=== PATIENT | female | born 1930 | race Caucasian/White ===

== ENCOUNTER 2019-12-12 05:01 | Inpatient (IN) | payer MEDICARE, OTHER ==
[~2019-12-12] VITALS: Ht 165.1 cm; Wt 43.1 kg
[2019-12-12] VITALS (19 sets, daily range): BP systolic 74–119; BP diastolic 36–69
[2019-12-12] MEDS ORDERED: ACET325C7 GT (05:14)
[2019-12-12] MEDS ORDERED: ACET325T53 GT (05:15)
[2019-12-12] MEDS ORDERED: ALBU2.5V13 NEB (05:15)
[2019-12-12] MEDS ORDERED: VANCOMYCIN 1 GM VIAL ONE (05:20)
[2019-12-12] MEDS ORDERED: ACETAMINOPHEN 650 MG/SUPP.RECT RC ONE ×2 (05:20→06:00)
[2019-12-12] MEDS ORDERED: PIPERACILLIN /TAZOBACTAM 3.375 G VIAL IV ONE (05:20)
[2019-12-12] MEDS ORDERED: BISA-79 GT (05:25)
[2019-12-12] MEDS ORDERED: CHLO473M3 PO (05:25)
[2019-12-12] MEDS ORDERED: DOCU100C36 PO (05:25)
[2019-12-12] MEDS ORDERED: NA P133E RC (05:26)
[2019-12-12] MEDS ORDERED: APIX5TAB GT (05:26)
[2019-12-12] MEDS ORDERED: GUAI-671 GT (05:27)
[2019-12-12] MEDS ORDERED: MAGN400O21 GT (05:28)
[2019-12-12] MEDS ORDERED: MULT1TAB73 GT (05:28)
[2019-12-12] MEDS ORDERED: METO50TA16 GT (05:28)
[2019-12-12] MEDS ORDERED: FAMO-131 GT (05:29)
[2019-12-12] MEDS ORDERED: PIPERACILLIN /TAZOBACTAM 3.375 G in IV D5W 50 ML IV ONE (05:30)
[2019-12-12] MEDS ORDERED: IV NS 0.9% 1,000 ML BAG IV ONE (05:30)
[2019-12-12] MEDS ORDERED: PANT40SU GT (05:30)
[2019-12-12] MEDS ORDERED: VANCOMYCIN 1 GM in IV D5W 250 ML IV ONE (05:30)
[2019-12-12] MEDS ORDERED: ASPIRIN 300 MG/SUPP.RECT RC ONE (05:30)
[2019-12-12 05:40] LABS: BASOPHILS # (AUTO) 0.1 /CMM (0.0-0.2); BASOPHILS % (AUTO) 0.3 % (0.0-2.0); HEMATOCRIT 32 % (33-45); HEMOGLOBIN 10.1 g/dL (11.5-14.8); LYMPHOCYTES # (AUTO) 0.2 /CMM (0.8-4.8); MEAN CORPUSCULAR HGB CONC 32 g/dl (31.0-36.0); MEAN CORPUSCULAR VOLUME 95 fL (82-100); MONOCYTES # (AUTO) 0.3 /CMM (0.1-1.30); MONOCYTES % (AUTO) 1.2 % (2.0-12.0); NEUTROPHILS % (AUTO) 97.5 % (43.0-81.0); PLATELET COUNT (AUTO) 480 /CMM (150-450); RED BLOOD CELL COUNT(AUTO) 3.33 MIL/uL (4.0-5.2); WHITE BLOOD COUNT (AUTO) 25.7 K/uL (4.3-11.0)
--- NOTE | 2019-12-12 05:44 | NUR ---
FARHAD FROM [facility]. TO ER BED 9. PT IS LETHARGIC, RESPONDS TO VERBAL, TACTILE AND PAIN STIMULI. ABLE TO FOLLOW COMMAND. PT IS ON T BAR NOTED BREATHING SHALLOW AND RAPID, NOTED CRACKLE AND RALES. PER EMS REPORT, FACILTY REPORTED THAT SHE IS NOT HER SELF. PT HAS BEEN SOB AND DESAT TO [place] READING. EMS REPORTED THAT PT IS HYPOTENSIVE W/ SBP IN THE 70'S. GIVEN BOLUS OF 100ML NS. PT WAS ALSO NOTED WITH PRODUCTIVE COUGHING, SUCTION PROVIDED - SPUTUM IS MODERATE THICK BLOOD TINGED YELLOW SPUTUM. PT IS ALSO NOTED WARM TO TOUCH WITH RECTAL TEMP OF 101.0. MD WAS AT BEDSIDE FOR EVAL. ORDERS RECEIVED, NOTED AND CARRIED OUT. IV LINE OBTAINED ON THE L WRIST 20G, BLOOD DRAWN AND GIVEN TO CHEMIST PHYSICAL AT BEDSIDE
[2019-12-12 06:09] LABS: ALANINE AMINOTRANSFERASE 17 U/L (12-78); ALKALINE PHOSPHATASE 97 U/L (46-116); ASPARTATE AMINOTRANSFERASE 19 U/L (15-37); BILIRUBIN,TOTAL 0.4 mg/dL (0.2-1.0); CALCIUM, SERUM 8.1 mg/dL (8.5-10.1); CARBON DIOXIDE 31 mmol/L (21-32); CHLORIDE 95 mmol/L (98-107); GLUCOSE 95 mg/dL (74-106); POTASSIUM 3.4 mmol/L (3.5-5.1); SODIUM SERUM 133 mmol/L (136-145); TOTAL PROTEIN, SERUM 6.3 g/dL (6.4-8.2); UREA NITROGEN, BLOOD 28 mg/dL (7-18)
[2019-12-12 06:19] LABS: CREATININE 0.6 mg/dL (0.6-1.3)
--- NOTE | 2019-12-12 06:39 | NUR ---
suction provided. thick blood tigned yellow sputum
--- NOTE | 2019-12-12 07:05 | NUR ---
urine collected via in & out cath. strict sterile technique observed during procedure
--- NOTE | 2019-12-12 07:09 | NUR ---
RECTAL TEMP NOTED AT 98.7. MD CASTRO
[2019-12-12 07:35] LABS: APPEARANCE,URINE Clear (CLEAR); BILIRUBIN,URINE Negative (NEGATIVE); BLOOD, URINE Trace-intact Ery/uL (NEGATIVE); COLOR,URINE Yellow (YELLOW); KETONES,URINE Negative (NEGATIVE); LEUKOCYTE ESTERASE ,URINE Small (NEGATIVE); NITRITE, URINE Negative (NEGATIVE); PROTEIN,URINE Negative (NEGATIVE); UGLUCOSE Negative (NEGATIVE); UROBILINOGEN,URINE 0.2 EU/dL (0.2)
--- NOTE | 2019-12-12 07:42 | NUR ---
TRACHE AND MOUTH SUCTION DONE.
--- NOTE | 2019-12-12 07:45 | NUR ---
PT ENDORSED TO YURIDIA FISH FOR HARDIK
[2019-12-12] MEDS ORDERED: ALBUTEROL FS 2.5 MG/0.5 ML VIAL.NEB NEB PRN (08:00)
[2019-12-12] MEDS ORDERED: Z GUARD REMEDY 2 OZ OINT TP PRN (08:00)
[2019-12-12] MEDS ORDERED: ONDANSETRON HCL/PF 4 MG/2 ML VIAL IVP PRN (08:00)
[2019-12-12] MEDS ORDERED: IPRATROPIUM NEB FS 0.5 MG/2.5 ML AMPUL.NEB NEB PRN (08:00)
[2019-12-12 08:05] LABS: BACTERIA,URINE Many /HPF (None Seen); RBC,URINE 0-2 /HPF (0-2); SQUAMOUS EPITHELIAL CELL,UR Few /HPF (None Seen)
--- NOTE | 2019-12-12 08:08 | NUR ---
CALLED FOR [facility] BED
--- NOTE | 2019-12-12 08:37 | NUR ---
GOT BED ICU 251
--- NOTE | 2019-12-12 08:52 | NUR ---
REPORT GIVEN TO ADDY SHI OF ICU
[2019-12-12] MEDS ORDERED: FEE PK DOSING 1 MIN EA MC ONE (09:09)
--- NOTE | 2019-12-12 09:45 | NUR ---
RN INITIAL NOTES RECEIVED PT AWAKE, A/OX1-2. TRACH IN PLACE. ON COOL AEROSOL AT 5LPM. NO RESPIRATORY DISTRESS NOTED. NO SOB NOTED. DENIES ANY PAIN. IV LINES IN PLACE. FLUSHED WITH NS. PT CONNECTED TO MONITOR. SKIN ASSESSMENT ONE. PICTURES TAKEN AND PLACED IN CHART. PT REFUSED WILKS CATH INSERTION. BLE ELEVATED. BELLA MARR DNP AWARE OF ADMISSION. AWAITING FOR ADMISSION ORDERS
[2019-12-12] MEDS ORDERED: Magnesium 1GM/D5W 100ML PREMIX 100 ML IV SCH (10:21)
[2019-12-12] MEDS: CHLORHEXIDINE GLUCONATE 15 ML UDC MM SCH ×2 (10:27→16:41)
[2019-12-12] MEDS: IV NS 0.9% 1,000 ML IV PRN (10:27)
[2019-12-12] MEDS: PANTOPRAZOLE 40 MG/PACK PACK GT SCH (10:27)
[2019-12-12] MEDS: DOCUSATE SODIUM 100 MG CAPSULE PO SCH (10:27)
--- NOTE | 2019-12-12 10:35 | NUR ---
RN NOTES SEEN AND EXAMINED BY BELLA AMRR DNP. AWARE OF PT'S LAB VALUES AND CXR RESULT. CULTURES PENDING. PT A/OX1-2, FOLLOWS COMMANDS. TRACH IN PLACE. ON COOL AEROSOL. NO RESPIRATORY DISTRESS NOTED. DENIES ANY PAIN. BP ON LOW SIDE. ORDERED LEVOPHED PRN. PT FOR PICC INSERTION. PT UNCONTROLLED A.FIB ON MONITOR, ASYMPTOMATIC. ORDERED MAGNESIUM LEVEL. WILL CLOSELY MONITOR.
[2019-12-12] MEDS: POTASSIUM CL. PREMIX PERIPHER. 50 ML IV SCH ×2 (10:47→11:48)
[2019-12-12 10:48] LABS: ABG BASE EXCESS 5.4 mmol/L; ABG OXYGEN SATURATION 92.6 % (92.0-98.5); ABG PCO2 47.8 mmHg (35.0-45.0); ABG PH 7.423 (7.350-7.450); ABG PO2 67.6 mmHg (75.0-100.0); AaDO2 126.4 mmHg; COHb 0.2 % (0.5-1.5); MetHb 0.6 % (0.0-1.5); O2Hb 91.9 % (94.0-97.0); SITE, ABG Right Radial
[2019-12-12] MEDS ORDERED: NOREPINEPHRINE 8 MG in IV D5W 500 ML IV PRN (11:00)
[2019-12-12] MEDS: HYDROCORTISONE SOD SUCCINATE 100 MG/2 ML VIAL IV SCH ×3 (11:54→16:41)
[2019-12-12] MEDS: PROSOURCE / PROSTAT (PYXIS) 30 ML UDC GT SCH (11:54)
[2019-12-12] MEDS: APIXABAN 5 MG TABLET GT SCH ×2 (11:55→16:45)
[2019-12-12] MEDS ORDERED: ALBUTEROL FS 2.5 MG/0.5 ML VIAL.NEB NEB SCH (12:00)
[2019-12-12] MEDS: PIPERACILLIN /TAZOBACTAM 3.375 G in IV D5W 50 ML IV SCH ×2 (13:07→17:10)
--- NOTE | 2019-12-12 18:34 | NUR ---
RN CLOSING NOTES NO SIGNIFICANT CHANGE NOTED. KEPT AIRWAY PATENT. NO RESPIRATORY DISTRESS NOTED. SUCTIONED. DENIES ANY PAIN. IVF INFUSING. KEPT NPO. KEPT CLEAN AND DRY. KEPT COMFORTABLE. ALL NEEDS ANTICIPATED AND MET. CALL LIGHT WITHIN REACH. WILL ENDORSE FOR CONTINUITY OF CARE
--- NOTE | 2019-12-12 19:20 | NUR ---
RN OPENING NOTES, RECEIVED REPORT AT BEDSIDE, PATIENT AWAKE A/O2, ABLE TO MAKE NEEDS KNOW, BREATHING EVEN AND UNLABORED, NO SOB/ACUTE DISTRESS NOTED AT THIS TIME, DENIES ANY PAIN OR DISCOMFORT, ON COOL AEROSOL, WITH TRACH IN PLACED, NO ACCUMULATION OF SECRETIONS NOTED, RESPIRATORY DISTRESS NOTED, NS 0.9% IVF INFUSING ORDERED, PATENT TOLERATED WELL, NPO AT THIS TIME, DRY AND CLEAN KEPT COMFORTABLE, HOB ELEVATED, ALL NEEDS PROVIDED, CALL LIGHT WITHIN REACH, BILATERAL S/S OF BED UP, WILL CONTINUE TO MONITOR CLOSELY.
--- NOTE | 2019-12-12 21:50 | NUR ---
RN NOTES, PATIENT COMPLAINING OF MILD BACK PAIN AND COUGH, REQUESTING TYLENOL AND GUAIFENESIN, CALLED CRISTY VECTOR CONTROL SPECIALIST AND RECEIVED ORDERS FOR THOSE MEDICATIONS, NOTED AND CARRIED OUT, WILL ADMINISTRATE ORDERED.
[2019-12-12] MEDS ORDERED: ACETAMINOPHEN 650 MG/20 ML UDC- SA PATIENTS-PAIN ONLY GT PRN (22:00)
[2019-12-12] MEDS ORDERED: ACETAMINOPHEN 650 MG/20.3 ML UDC ONE (22:13)
[2019-12-12] MEDS: GUAIFENESIN/D-METHORPHAN HB 5 ML UDC GT PRN (22:17)
[2019-12-12] MEDS: VANCOMYCIN 500 MG in IV D5W 100 ML IV SCH (23:16)
[2019-12-13] VITALS (19 sets, daily range): BP systolic 83–122; BP diastolic 51–72
[2019-12-13] MEDS: PIPERACILLIN /TAZOBACTAM 3.375 G in IV D5W 50 ML IV SCH ×5 (00:44→23:02)
[2019-12-13] MEDS: IV NS 0.9% 1,000 ML IV PRN ×2 (04:14→17:53)
[2019-12-13] MEDS: GUAIFENESIN/D-METHORPHAN HB 5 ML UDC GT PRN ×2 (04:25→12:07)
[2019-12-13 04:34] LABS: BASOPHILS % (AUTO) 0.1 % (0.0-2.0); HEMATOCRIT 27 % (33-45); HEMOGLOBIN 8.4 g/dL (11.5-14.8); LYMPHOCYTES # (AUTO) 0.4 /CMM (0.8-4.8); LYMPHOCYTES % (AUTO) 1.5 % (20.0-44.0); MEAN CORPUSCULAR HGB CONC 32 g/dl (31.0-36.0); MEAN CORPUSCULAR VOLUME 95 fL (82-100); MONOCYTES # (AUTO) 0.5 /CMM (0.1-1.30); MONOCYTES % (AUTO) 1.9 % (2.0-12.0); NEUTROPHILS # (AUTO) 22.9 /CMM (1.8-8.9); NEUTROPHILS % (AUTO) 96.5 % (43.0-81.0); PLATELET COUNT (AUTO) 423 /CMM (150-450); WHITE BLOOD COUNT (AUTO) 23.7 K/uL (4.3-11.0)
[2019-12-13 04:49] LABS: THYROID STIMULATING HORMONE 2.745 uIU/mL (0.358-3.74)
[2019-12-13 04:50] LABS: CALCIUM, SERUM 8.3 mg/dL (8.5-10.1); CREATININE 0.6 mg/dL (0.6-1.3); MAGNESIUM 1.8 mg/dL (1.8-2.4); POTASSIUM 3.7 mmol/L (3.5-5.1)
--- NOTE | 2019-12-13 06:58 | NUR ---
RN CLOSING NOTES, PATIENT ASLEEP BUT AROUSES EASILY TO VERBAL STIMULI, BREATHING EVEN AND UNLABORED, NO SOB/ACUTE DISTRESS NOTED AT THIS TIME, NO SIGNIFICANT CHANGE IN CONDITION THROUGHOUT THE NIGHT, NPO AT THIS TIME EXCEPT MEDS, DRY AND CLEAN KEPT COMFORTABLE, HOB ELEVATED, ALL NEEDS PROVIDED, CALL LIGHT WITHIN REACH, BILATERAL S/S OF BED UP, WILL ENDORSE CONTINUITY OF CARE TO ONCOMING NURSE.
--- NOTE | 2019-12-13 07:10 | NUR ---
RN OPENING NOTES, RECEIVED PATIENT IN BED AWAKE A/OX3. ABLE TO MAKE NEEDS KNOWN. BREATHING EVEN AND UNLABORED, PATIENT ON COOL AEROSOL. WITH TRACH IN PLACE WITH OPTIMAL SATURATION NOTED. SOB/ACUTE DISTRESS SEEN. NO PAIN OR DISCOMFORT NOTED AND REPORTED. IV SITES ON RAC G20 AND BETTE PICC LINE PATENT, CLEAN AND DRY. NS IVF INFUSING ORDERED, PATIENT TOLERATING IT WELL. NPO EXCEPT MEDICATIONS AT THIS TIME, PATIENT IS AWARE AND UNDERSTOOD. PT HX WITH UNCONTROLLED A. FIB. CALL LIGHT IN REACH. BED LOCKED, LOW AND AT SEMI-PIZARRO'S POSITION. SR UP X3. WILL CONTINUE TO MONITOR.
[2019-12-13] MEDS: HYDROCORTISONE SOD SUCCINATE 100 MG/2 ML VIAL IV SCH ×3 (08:49→17:47)
[2019-12-13] MEDS: PANTOPRAZOLE 40 MG/PACK PACK GT SCH (08:49)
[2019-12-13] MEDS: DOCUSATE SODIUM 100 MG CAPSULE PO SCH (08:50)
[2019-12-13] MEDS: CHLORHEXIDINE GLUCONATE 15 ML UDC MM SCH ×2 (08:50→17:46)
[2019-12-13] MEDS: PROSOURCE / PROSTAT (PYXIS) 30 ML UDC GT SCH (08:50)
[2019-12-13] MEDS: APIXABAN 5 MG TABLET GT SCH ×2 (08:53→17:51)
[2019-12-13] MEDS: ACETAMINOPHEN 650 MG/20.3 ML UDC GT PRN (12:07)
--- NOTE | 2019-12-13 15:30 | NUR ---
RN NOTE: PATIENT DOWNGRADED FROM ICU TO [facility]. NURSE ACCOMPANIED PATIENT IN TRANSFER AND IN STABLE CONDITION UPON ARRIVING IN THE UNIT.
[2019-12-13] MEDS: VANCOMYCIN 500 MG in IV D5W 100 ML IV SCH (18:52)
--- NOTE | 2019-12-13 19:20 | NUR ---
RN CLOSING NOTE: PATIENT IN BED AWAKE A/OX4. ABLE TO MAKE NEEDS KNOWN, MOUTHS WORDS AND WRITES DOWN THINGS. BREATHING EVEN AND UNLABORED, PATIENT ON COOL AEROSOL @8LPM WITH TRACH IN PLACE WITH OPTIMAL SATURATION NOTED. SOB/ACUTE DISTRESS SEEN. NO PAIN OR DISCOMFORT NOTED AND REPORTED. IV SITES ON L HANDN G20 AND BETTE PICC LINE PATENT, CLEAN AND DRY. NS IVF INFUSING ORDERED, PATIENT TOLERATING IT WELL. TUBE FEEDING OF JEVITY 1.2 @ 25MLS/HR TO START. PT HX WITH UNCONTROLLED A. FIB WITH HEART RATE OF 88BPM NOTED. CALL LIGHT IN REACH. BED LOCKED, LOW AND AT SEMI-PIZARRO'S POSITION. SR UP X3. ENDORSED TO ONCOMING NURSE FOR HARDIK. PATIENT REPORTED HX OF WATCHMAN IMPLANT ON 2016 AND WOULD LIKE TO SPEAK TO DR. COLIN TOMORROW DUE TO BEING PRESCRIBED AND GIVEN ELIQUIS IN HER HOSPITAL STAY. EXPLAINED TO PATIENT THAT MEDICATION WAS RECONCILED FROM WHEN SHE WAS IN THE [place]. ACKNOWLEDGED. LEONARDO RN AWARE OF PATIENT'S REQUEST.
[2019-12-13] MEDS: JEVITY 1.2 CAL 1,000 ML BOTTLE GT PRN (20:12)
[2019-12-14] VITALS: BP 113/63
[2019-12-14] MEDS: GUAIFENESIN/D-METHORPHAN HB 5 ML UDC GT PRN ×3 (03:41→23:04)
[2019-12-14] MEDS: ACETAMINOPHEN 650 MG/20.3 ML UDC GT PRN ×3 (03:41→22:57)
[2019-12-14 04:00] VITALS: BP 113/67
[2019-12-14] MEDS: PIPERACILLIN /TAZOBACTAM 3.375 G in IV D5W 50 ML IV SCH ×4 (05:59→23:41)
[2019-12-14 07:02] LABS: BASOPHILS % (AUTO) 0.2 % (0.0-2.0); EOSINOPHILS % (AUTO) 0.2 % (0.0-6.0); HEMATOCRIT 25 % (33-45); LYMPHOCYTES # (AUTO) 0.8 /CMM (0.8-4.8); LYMPHOCYTES % (AUTO) 5.2 % (20.0-44.0); MEAN CORPUSCULAR HGB CONC 32 g/dl (31.0-36.0); MEAN CORPUSCULAR VOLUME 95 fL (82-100); MONOCYTES # (AUTO) 0.8 /CMM (0.1-1.30); MONOCYTES % (AUTO) 5.1 % (2.0-12.0); NEUTROPHILS # (AUTO) 13.6 /CMM (1.8-8.9); NEUTROPHILS % (AUTO) 89.3 % (43.0-81.0); PLATELET COUNT (AUTO) 389 /CMM (150-450); RED BLOOD CELL COUNT(AUTO) 2.69 MIL/uL (4.0-5.2); WHITE BLOOD COUNT (AUTO) 15.2 K/uL (4.3-11.0)
[2019-12-14 07:06] LABS: ALANINE AMINOTRANSFERASE 19 U/L (12-78); ALBUMIN 1.7 g/dL (3.4-5.0); ALKALINE PHOSPHATASE 71 U/L (46-116); ASPARTATE AMINOTRANSFERASE 13 U/L (15-37); BILIRUBIN,TOTAL 0.3 mg/dL (0.2-1.0); CALCIUM, SERUM 8.2 mg/dL (8.5-10.1); CARBON DIOXIDE 32 mmol/L (21-32); CHLORIDE 106 mmol/L (98-107); CREATININE 0.4 mg/dL (0.6-1.3); GLUCOSE 102 mg/dL (74-106); MAGNESIUM 1.9 mg/dL (1.8-2.4); PHOSPHORUS 2.2 mg/dL (2.5-4.9); POTASSIUM 3.5 mmol/L (3.5-5.1); SODIUM SERUM 140 mmol/L (136-145); TOTAL PROTEIN, SERUM 5.5 g/dL (6.4-8.2); UREA NITROGEN, BLOOD 19 mg/dL (7-18)
--- NOTE | 2019-12-14 07:10 | NUR ---
RN CLOSING NOTE PATIENT IN BED AWAKE A/OX4. BREATHING EVEN AND UNLABORED, PATIENT ON COOL AEROSOL @8LPM WITH TRACH IN PLACE WITH OPTIMAL SATURATION NOTED. TUBE FEEDING OF JEVITY 1.2 @ 25MLS/HR AND TOLERATING WELL. NO RESIDUAL NOTED. PT HX WITH UNCONTROLLED A. FIB CALL LIGHT IN REACH. BED LOCKED, LOW AND AT SEMI-PIZARRO'S POSITION. SR UP X3. ENDORSED TO MORNING SHIFT. ONCOMING NURSE FOR HARDIK.
[2019-12-14 08:00] VITALS: BP_SYST 104; BP_DIAS 62; BP_DIAS 67
--- NOTE | 2019-12-14 08:11 | NUR ---
RN OPENING NOTES RECEIVED PATIENT RESTING IN BED COMFORTABLY, DENIES ANY PAIN OR DISCOMFORT AT THIS TIME. SHE IS AOX3, VERBAL, AND ON BEDREST. SHE IS ON COOL AEROSOL AT 5L VIA TRACH, TOLERATING WELL, NO SOB OR RESP DISTRESS. TELE MONITOR SHOWING CONTROLLED AFIB. GTUBE IS PATENT AND INTACT, RUNNING AT 35 ML/HR, NO RESIDUALS, GOAL OF 50 ML/HR. RAC 20 GIS PATENT AND RUNNING NS AT 75 ML/HR, BETTE PICC IS PATENT AND INTACT. SAFETY MEASURES HAVE BEEN IMPLEMENTED, CALL LIGHT IS WITHIN REACH, BED IS IN LOWEST AND LOCKED POSITION, SIDE RAILS UP X2, WILL CONTINUE TO MONITOR FOR ANY CHANGES.
[2019-12-14] MEDS: CHLORHEXIDINE GLUCONATE 15 ML UDC MM SCH ×2 (08:58→17:35)
[2019-12-14] MEDS: APIXABAN 5 MG TABLET GT SCH (09:00)
[2019-12-14] MEDS: PROSOURCE / PROSTAT (PYXIS) 30 ML UDC GT SCH (09:00)
[2019-12-14] MEDS: PANTOPRAZOLE 40 MG/PACK PACK GT SCH (09:00)
[2019-12-14] MEDS: DOCUSATE SODIUM 100 MG CAPSULE PO SCH (09:00)
[2019-12-14] MEDS: HYDROCORTISONE SOD SUCCINATE 100 MG/2 ML VIAL IV SCH ×2 (09:00→13:00)
--- NOTE | 2019-12-14 09:05 | NUR ---
RN NOTES PATIENT HAS REFUSED ALL AM MEDS, EVEN ELIQUIS FOR AFIB. PT STATES SHE HAD A WATCHMEN DEVICE IMPLANTED IN 2017 AT [facility], THATS WHY SHE REFUSED ELIQUIS. WILL NOTIFY MD ONCE DOCTORS LIST IS MADE AVAILABLE. WILL CONTINUE TO MONITOR FOR ANY CHANGES.
--- NOTE | 2019-12-14 10:56 | NUR ---
RN NOTES DR. COLIN MADE AWARE OF REFUSAL OF ELIQUIS. TUBE FEEDING HAS BEEN INCREASED TO 40 ML/HR, PT TOLERATIGN WELL. NO RESIDUAL, WILL CONTINUE TO MONITOR FOR ANY CHANGES
[2019-12-14] MEDS ORDERED: NEUTRA PHOS 1 POWD.PACKET GT ONE (11:00)
--- NOTE | 2019-12-14 12:00 | NUR ---
YURIDIA NOTES PATIENT HAS REFUSED 1200 VITALS, WILL CONTINUE TO MONITOR FOR ANY CHANGES. Addendum: 12/14/19 at 1446 by TOVA ARAGON RN Amended: Links added.
[2019-12-14] MEDS ORDERED: VANCOMYCIN 1 GM in IV D5W 250 ML IV SCH (13:00)
[2019-12-14] MEDS: VANCOMYCIN 500 MG in IV D5W 100 ML IV SCH (13:44)
[2019-12-14] MEDS: Z GUARD REMEDY 4 OZ OINT TP SCH (15:54)
[2019-12-14 16:00] VITALS: BP 99/65
[2019-12-14] MEDS: IPRATROPIUM NEB FS 0.5 MG/2.5 ML AMPUL.NEB NEB SCH ×2 (17:57→20:12)
[2019-12-14] MEDS: ACETYLCYSTEINE 10% SOLN 400 MG/4 ML VIAL NEB SCH (17:57)
--- NOTE | 2019-12-14 19:29 | NUR ---
RN CLOSING NOTES PATIENT IS RESTING IN BED COMFORTABLY, DOES NOT SHOW ANY S/SX OF RESP DISTRESS OR SOB. PT NEEDS HAVE BEEN MET, VITAL SIGNS ARE STABLE, NO ACUTE CHANGES OCCURRED THROUGHOUT THE SHIFT. SAFETY MEASURES HAVE BEEN IMPLEMENTED, CALL LIGHT IS WITHIN REACH, BED IS IN LOWEST AND LOCKED POSITION, SIDE RAILS UP X2, PT HAS BEEN ENDORSED TO NIGHTSHIFT RN FOR CONTINUITY OF CARE.
[2019-12-14 20:00] VITALS: BP 103/74
--- NOTE | 2019-12-14 20:00 | NUR ---
TELE/RN OPENING NOTES RECEIVED PATIENT AWAKE, ALERT ABLE TO VERBALIZE NEEDS ON COOLING AREOSOL WITH PRESCRIBED SETTING, HAVING BM AND MONITORING FOR ANY CHANGES. REPOSITION FOR COMFORT, RT FOR SUCTIONING. BED LOCKED, CALL LIGHTS WITHIN REACH. WILL MONITOR, ON AFIB WITH PVCS.
--- NOTE | 2019-12-14 23:42 | NUR ---
TELE/RN NOTES PATIENT REFUSED TO HAVE IV ANTIBIOTIC DISCUSSED IMPORTANCE AND VERBALIZED UNDERSTANDING, PATIENT REPORTED HAVING DIARRHEA, ONE TIME STOOL INITIAL START, HELD GTUBE FEEDING ALSO PER PATIENT REQUEST. WILL MONITOR.
[2019-12-15] VITALS: BP 108/73
[2019-12-15] MEDS: IPRATROPIUM NEB FS 0.5 MG/2.5 ML AMPUL.NEB NEB SCH ×7 (00:10→23:42)
[2019-12-15] MEDS: ACETYLCYSTEINE 10% SOLN 400 MG/4 ML VIAL NEB SCH ×4 (00:10→23:42)
[2019-12-15] MEDS: VANCOMYCIN 500 MG in IV D5W 100 ML IV SCH ×2 (00:53→16:15)
[2019-12-15] MEDS: ACETAMINOPHEN 650 MG/20.3 ML UDC GT PRN ×2 (03:24→22:11)
[2019-12-15] MEDS: GUAIFENESIN/D-METHORPHAN HB 5 ML UDC GT PRN ×2 (03:24→22:12)
--- NOTE | 2019-12-15 03:29 | NUR ---
TELE/RN NOTES PATIENT HAD ONE BOWEL MOVEMENT, REFUSED TO HAVE IV ANTIBIOTIC DISCUSSED PROS AND CONS VERBALIZED UNDERSTANDING BUT WAS PROVIDED INFORMATION BUT PATIENT VERBALIZED NEEDS AND CONCERNS, GTUBE FEEDING WAS ASKED NOT TO START AT THIS TIME, TO FOLLOW UP,
[2019-12-15 04:00] VITALS: BP 121/78
[2019-12-15] MEDS: PIPERACILLIN /TAZOBACTAM 3.375 G in IV D5W 50 ML IV SCH ×3 (05:49→18:13)
--- NOTE | 2019-12-15 07:38 | NUR ---
TELE/RN CLOSING NOTES ALL NEEDS ATTENDED, CALL LIGHTS WITHIN REACH, PATIENT ABLE TO VERBALIZE NEEDS AT ALL TIMED. ENDORSED TO AM RN FOR HARDIK.
[2019-12-15 08:00] VITALS: BP 138/63
[2019-12-15 09:09] LABS: CALCIUM, SERUM 7.8 mg/dL (8.5-10.1); CARBON DIOXIDE 29 mmol/L (21-32); CHLORIDE 107 mmol/L (98-107); CREATININE 0.4 mg/dL (0.6-1.3); GLUCOSE 72 mg/dL (74-106); PHOSPHORUS 2.6 mg/dL (2.5-4.9); POTASSIUM 3.2 mmol/L (3.5-5.1); SODIUM SERUM 143 mmol/L (136-145); UREA NITROGEN, BLOOD 13 mg/dL (7-18)
[2019-12-15] MEDS: CHLORHEXIDINE GLUCONATE 15 ML UDC MM SCH ×2 (09:09→18:13)
[2019-12-15] MEDS: PANTOPRAZOLE 40 MG/PACK PACK GT SCH (09:10)
[2019-12-15] MEDS: DOCUSATE SODIUM 100 MG CAPSULE PO SCH (09:10)
[2019-12-15] MEDS: Z GUARD REMEDY 4 OZ OINT TP SCH (09:11)
[2019-12-15] MEDS: PROSOURCE / PROSTAT (PYXIS) 30 ML UDC GT SCH (09:12)
[2019-12-15 12:00] VITALS: BP 115/72
[2019-12-15 16:00] VITALS: BP 120/75
[2019-12-15 20:00] VITALS: BP 116/76
[2019-12-15] MEDS: JEVITY 1.2 CAL 1,000 ML BOTTLE GT PRN (22:16)
[2019-12-16] MEDS: VANCOMYCIN 500 MG in IV D5W 100 ML IV SCH ×3 (01:25→14:51)
[2019-12-16] MEDS: PIPERACILLIN /TAZOBACTAM 3.375 G in IV D5W 50 ML IV SCH ×4 (01:25→17:07)
[2019-12-16] MEDS ORDERED: GUAIFENESIN/D-METHORPHAN HB 5 ML UDC ONE (02:36)
[2019-12-16] MEDS: GUAIFENESIN/D-METHORPHAN HB 5 ML UDC GT PRN ×2 (02:38→23:24)
[2019-12-16 04:00] VITALS: BP 113/69
[2019-12-16] MEDS: IPRATROPIUM NEB FS 0.5 MG/2.5 ML AMPUL.NEB NEB SCH ×6 (04:07→23:28)
--- NOTE | 2019-12-16 06:16 | NUR ---
MS RN NOTES AWAKE & ALERT. ABLE TO MAKE NEEDS KNOWN. WITH TRACH TO PIECE SATURATING WELL. NOT IN ANY DISTRESS. NO SOB NOTED. DENIES ANY PAIN OR DISCOMFORT AT THIS TIME. WITH PICC LINE PATENT & INTACT. WITH GTF INFUSING WELL. SUCTIONED PRN. AM CARE DONE. MONITORED ACCORDINGLY. CALL LIGHT WITHIN REACH. BED IN LOWEST POSITION. SR UP X 3 WITH BED ALARM ON FOR SAFETY. WILL ENDORSE TO NEXT SHIFT.
[2019-12-16 07:24] LABS: BASOPHILS % (AUTO) 0.6 % (0.0-2.0); EOSINOPHILS % (AUTO) 3.3 % (0.0-6.0); HEMATOCRIT 26 % (33-45); HEMOGLOBIN 8.5 g/dL (11.5-14.8); LYMPHOCYTES # (AUTO) 0.5 /CMM (0.8-4.8); LYMPHOCYTES % (AUTO) 6.7 % (20.0-44.0); MEAN CORPUSCULAR HGB CONC 32 g/dl (31.0-36.0); MEAN CORPUSCULAR VOLUME 95 fL (82-100); MONOCYTES # (AUTO) 0.5 /CMM (0.1-1.30); MONOCYTES % (AUTO) 5.8 % (2.0-12.0); NEUTROPHILS # (AUTO) 6.6 /CMM (1.8-8.9); NEUTROPHILS % (AUTO) 83.6 % (43.0-81.0); PLATELET COUNT (AUTO) 337 /CMM (150-450); RED BLOOD CELL COUNT(AUTO) 2.77 MIL/uL (4.0-5.2); WHITE BLOOD COUNT (AUTO) 7.9 K/uL (4.3-11.0)
[2019-12-16 07:38] LABS: CALCIUM, SERUM 7.8 mg/dL (8.5-10.1); CARBON DIOXIDE 33 mmol/L (21-32); CHLORIDE 104 mmol/L (98-107); CREATININE 0.3 mg/dL (0.6-1.3); GLUCOSE 81 mg/dL (74-106); MAGNESIUM 1.6 mg/dL (1.8-2.4); PHOSPHORUS 2.4 mg/dL (2.5-4.9); SODIUM SERUM 142 mmol/L (136-145); UREA NITROGEN, BLOOD 7 mg/dL (7-18)
[2019-12-16] MEDS: ACETYLCYSTEINE 10% SOLN 400 MG/4 ML VIAL NEB SCH ×3 (07:43→23:28)
[2019-12-16 07:58] LABS: POTASSIUM 2.7 mmol/L (3.5-5.1)
[2019-12-16] MEDS: Z GUARD REMEDY 4 OZ OINT TP SCH (09:00)
[2019-12-16] MEDS: PANTOPRAZOLE 40 MG/PACK PACK GT SCH (10:47)
[2019-12-16] MEDS: DOCUSATE SODIUM LIQ 100 MG/10 ML UDC GT SCH (10:47)
[2019-12-16] MEDS: CHLORHEXIDINE GLUCONATE 15 ML UDC MM SCH ×2 (10:47→17:07)
[2019-12-16] MEDS: Magnesium 1GM/D5W 100ML PREMIX 100 ML IV SCH ×4 (10:54→11:54)
[2019-12-16] MEDS: PROSOURCE / PROSTAT (PYXIS) 30 ML UDC GT SCH (10:57)
[2019-12-16] MEDS ORDERED: POTASSIUM CHLORIDE 20 MEQ POWDER PACKET GT ONE (11:00)
[2019-12-16] MEDS ORDERED: Potassium Chloride 40 MEQ in IV NS 0.9% 1,000 ML IV PRN (12:00)
[2019-12-16] MEDS ORDERED: NEUTRA PHOS 1 POWD.PACKET NG ONE (12:30)
[2019-12-16] MEDS ORDERED: POTASSIUM CHLORIDE 20 MEQ POWDER PACKET NG SCH (13:00)
[2019-12-16 16:00] VITALS: BP 118/68
--- NOTE | 2019-12-16 19:30 | NUR ---
MS RN NOTES PATIENT IN BED AWAKE AND ORIENTED X 3. ABLE TO MAKE NEEDS KNOWS. WITH TRACH PORTEX #7, BREATHING EVEN AND UNLABORED. DENIES ACUTE PAIN NO ACUTE RESPIRATORY DISTRESS. IV ON BETTE PICC IS CLEAN DRY AND INTACT SHOWS NO SIGN OF INFILTRATION NO REDNESS. GTUBE IS CLEAN DRY AND INTACT, FLUSHING WELL. SAFETY PRECAUTIONS IN PLACE. BED IN LOWEST POSITION LOCKED AND CALL LIGHT KEPT WITHIN REACH. WILL CONTINUE TO MONITOR.
[2019-12-16 20:00] VITALS: BP 118/71
[2019-12-16 21:00] VITALS: BP 118/71
[2019-12-17] MEDS: ACETAMINOPHEN 650 MG/20.3 ML UDC GT PRN (00:42)
[2019-12-17] MEDS: VANCOMYCIN 500 MG in IV D5W 100 ML IV SCH ×2 (01:00→13:00)
[2019-12-17] MEDS: IPRATROPIUM NEB FS 0.5 MG/2.5 ML AMPUL.NEB NEB SCH ×5 (02:58→21:08)
[2019-12-17] MEDS: GUAIFENESIN/D-METHORPHAN HB 5 ML UDC GT PRN (03:28)
[2019-12-17 04:00] VITALS: BP 128/85
[2019-12-17 05:00] VITALS: BP 128/85
[2019-12-17] MEDS: PIPERACILLIN /TAZOBACTAM 3.375 G in IV D5W 50 ML IV SCH ×5 (06:00→18:00)
[2019-12-17 06:40] LABS: CARBON DIOXIDE 32 mmol/L (21-32); CHLORIDE 101 mmol/L (98-107); CREATININE 0.4 mg/dL (0.6-1.3); GLUCOSE 59 mg/dL (74-106); MAGNESIUM 1.6 mg/dL (1.8-2.4); PHOSPHORUS 2.4 mg/dL (2.5-4.9); POTASSIUM 3.6 mmol/L (3.5-5.1); SODIUM SERUM 140 mmol/L (136-145); UREA NITROGEN, BLOOD 8 mg/dL (7-18)
--- NOTE | 2019-12-17 06:43 | NUR ---
MS RN NOTES PATIENT IN BED, AWAKE, AND ORIENTED X 3. ABLE TO MAKE NEEDS KNOWS. WITH TRACH PORTEX #7, BREATHING EVEN AND UNLABORED. DENIES ACUTE PAIN NO ACUTE RESPIRATORY DISTRESS. IV ON BETTE PICC IS CLEAN DRY AND INTACT SHOWS NO SIGN OF INFILTRATION NO REDNESS. GTUBE IS CLEAN DRY AND INTACT, FLUSHING WELL. PT REFUSED ALL DUE MEDICATIONS, DOC IS AWARE. SAFETY PRECAUTIONS IN PLACE. BED IN LOWEST POSITION LOCKED AND CALL LIGHT KEPT WITHIN REACH. WILL ENDORSE TO ONCOMING NURSE.
--- NOTE | 2019-12-17 07:24 | NUR ---
MS Nurses Notes: PATIENT IN BED, AWAKE, AND ORIENTED X 3. ABLE TO MAKE NEEDS KNOWS AND WILL SAY WHAT SHE DOES NOT WANT. WITH TRACH PORTEX #7, BREATHING EVEN AND UNLABORED. DENIES ACUTE PAIN NO ACUTE RESPIRATORY DISTRESS. IV ON BETTE PICC, AREA IS CLEAN DRY AND INTACT SHOWS NO SIGN OF INFILTRATION NO REDNESS. GTUBE IS CLEAN DRY AND INTACT, FLUSHING WELL. PT REFUSED ALL DUE MEDICATIONS, DOC IS AWARE. SAFETY PRECAUTIONS IN PLACE. BED IN LOWEST POSITION LOCKED AND CALL LIGHT KEPT WITHIN REACH. REPORT FROM THE NIGHT NURSE KERVIN TRAMMELL RN.
[2019-12-17] MEDS: ACETYLCYSTEINE 10% SOLN 400 MG/4 ML VIAL NEB SCH ×2 (07:29→16:13)
[2019-12-17 08:00] VITALS: BP 112/80
[2019-12-17] MEDS: Z GUARD REMEDY 4 OZ OINT TP SCH (09:00)
[2019-12-17] MEDS: DOCUSATE SODIUM LIQ 100 MG/10 ML UDC GT SCH ×2 (09:00→09:48)
[2019-12-17] MEDS: CHLORHEXIDINE GLUCONATE 15 ML UDC MM SCH ×2 (09:48→17:00)
[2019-12-17] MEDS: PANTOPRAZOLE 40 MG/PACK PACK GT SCH (09:48)
[2019-12-17] MEDS: Magnesium 1GM/D5W 100ML PREMIX 100 ML IV SCH ×2 (10:34→11:34)
[2019-12-17] MEDS: PROSOURCE / PROSTAT (PYXIS) 30 ML UDC GT SCH (11:54)
[2019-12-17] MEDS ORDERED: NEUTRA PHOS 1 POWD.PACKET GT ONE (12:30)
--- NOTE | 2019-12-17 12:33 | NUR ---
Nurse Notes: Refused IV magnesium, patient stated Magnesium makes her have diarrhea. No loose stools today, refusing Jevity GT feeding. there is no anti-diarrhea medications ordered.
--- NOTE | 2019-12-17 13:00 | NUR ---
Nurse Notes: patient is willing to have 2 packets of Neutraphos. given thru GT. Refused IV magnesium earlier.
[2019-12-17] MEDS ORDERED: IV D5W 1,000 ML IV PRN (13:30)
[2019-12-17] MEDS ORDERED: LOPERAMIDE HCL (2 MG CAP) 2 MG CAPSULE PO PRN (14:00)
[2019-12-17] MEDS ORDERED: Z Guard Remedy TP (14:43)
[2019-12-17] MEDS ORDERED: GUAI5SYR GT (14:43)
[2019-12-17] MEDS ORDERED: IPRA0.2S9 NEB (14:43)
[2019-12-17] MEDS ORDERED: ACET1OOV6 NEB (14:43)
[2019-12-17] MEDS ORDERED: Prosource GT (14:43)
[2019-12-17] MEDS ORDERED: LOPE2CAP40 PO (14:43)
[2019-12-17] MEDS ORDERED: [UNRECOGNIZED DRUG - CODE] IV (14:43)
[2019-12-17] MEDS ORDERED: ACET650S26 GT (14:43)
[2019-12-17] MEDS ORDERED: LACT-209 GT (14:43)
[2019-12-17] MEDS ORDERED: PIPE3.379 IV (14:43)
[2019-12-17] MEDS ORDERED: RXVAN XX (14:43)
[2019-12-17 15:02] VITALS: BP 148/73
[2019-12-17] MEDS ORDERED: CLONIDINE HCL 0.1 MG TABLET PO ONE (15:30)
--- NOTE | 2019-12-17 19:30 | NUR ---
RN MS NOTES RECEIVED PATIENT IN BED AWAKE ALERT AND ORIENTED X3, RESPIRATIONS EVEN AND UNLABORED WITH EQUAL RISE AND FALL OF CHEST, TRACH INTACT , TRACH TIE IN PLACE, COOL AEROSOL , TOLERATING WELL O2 ORDERED IN PLACE, HEAD OF BED ELEVATED FOR ASPIRATION PRECAUTIONS, RIGHT UPPER ARM PICC LINE IN PLACE, D5W RUNNING ORDERED. ORIENTED TO STAFF AND CALL LIGHT AND KEPT WITHIN REACH, PATIENT AWARE OF DISCHARGE. ALL NEEDS ATTENDED AT THIS TIME, LOW BED AND LOCKED, WILL CONTINUE TO MONITOR FOR EFFECTIVENESS, CALLED AND SPOKE TO YURIDIA CACERES AT [facility] WHO ACCEPTED PATIENT AND REPORT WAS GIVEN.
--- NOTE | 2019-12-17 19:35 | NUR ---
Nurse Notes: report given to the night nurse Yohana SHI, patient will be discharge to SNF, hand picker time is 2129.
[2019-12-17 21:00] VITALS: BP 124/79
--- NOTE | 2019-12-17 22:00 | NUR ---
RN MS NOTES PATIENT WAS CLEANSED AND REPOSITIONED, REMAINS CLEAN DRY AND INTACT, ALL BELONGINGS DONE AND WOUND PICTURES DONE, SACRAL SCATTERED REDNESS NOTES, LEFT ANTERIOR LEG SCAB INTACT AND RIGHT ARM SCATTERED DISCOLORATIONS PRESENT. REMAINS COMFORTABLE , DENIES ANY PAIN AT THIS TIME WILL CONTINUE TO MONITOR.
--- NOTE | 2019-12-17 22:30 | NUR ---
RN MS NOTES PATIENT LEFT FOR DISCHARGE TO [facility] PICKED UP BY AMBULANCE TRANSPORTATION [facility]LA[facility] RESPIRATORY THERAPIST. VS WNL 90,103/71,98% COOL AEROSOL , 18. 96.6. NO DISTRESS PRESENT, PATIENT AWARE OF DISCHARGE, ALL BELONGINGS WITH PATIENT, LEFT CLEAN AND IN STABLE CONDITION . REPORT GIVEN TO LOVERLY, DISCHARGE AND EXIT CARE GIVEN TO AMBULANCE EMT. Addendum: 12/17/19 at 9268 by PHILIPPE QUINTANA RN BLS WITH RT AT BEDSIDE FOR TRANSPORT.
--- NOTE | 2019-12-17 23:20 | NUR ---
RT NOTE PT RECEIVED TRACHED ON COOL AEROSOL @ 35%. TX GIVEN, NO ADVERSE REACTIONS NOTED. SX DONE, TRACH SECURED AND PATENT. WATER LEVEL GOOD. NO SOB NOTED. Addendum: 12/17/19 at 2322 by FRANCIS LEYVA RT Amended: Links added.
== END 2019-12-17 21:00 | DRG 871 ==
LOC: ER 05:03 → ICU 08:54 → TELE-TD 12-13 16:47 → TELE1 12-14 12:09 → MEDSG1 12-15 10:21
PROVIDERS: ADMIT Nurse Practitioner Acute Care; ATTEND Registered Nurse
DX: A41.9 Sepsis, unspecified organism (principal); G93.41 Metabolic encephalopathy; R65.21 Severe sepsis with septic shock; J96.21 Acute and chronic respiratory failure with hypoxia; E43 Unspecified severe protein-calorie malnutrition; J15.6 Pneumonia due to other Gram-negative bacteria; E87.0 Hyperosmolality and hypernatremia; I48.20 Chronic atrial fibrillation, unspecified; R64 Cachexia; Z99.11 Dependence on respirator [ventilator] status; J90 Pleural effusion, not elsewhere classified; D68.69 Other thrombophilia; E87.2 Acidosis; Z68.1 Body mass index [BMI] 19.9 or less, adult; E86.1 Hypovolemia; I27.20 Pulmonary hypertension, unspecified; K21.9 Gastro-esophageal reflux disease without esophagitis; Z74.01 Bed confinement status; Z93.1 Gastrostomy status; Z93.0 Tracheostomy status; Z86.711 Personal history of pulmonary embolism; I10 Essential (primary) hypertension; D64.9 Anemia, unspecified; E16.2 Hypoglycemia, unspecified; D47.3 Essential (hemorrhagic) thrombocythemia; Z86.718 Personal history of other venous thrombosis and embolism; Z79.01 Long term (current) use of anticoagulants
CPT/HCPCS: 31720; 36415; 36600; 71045-TC; 80048-TC; 80053-TC; 80061-TC; 80076-TC; 80202-TC; 81000-TC; 82533; 82803-TC; 83605-TC; 83735-TC; 84100-TC; 84443-TC; 84484-TC; 85025-TC; 85730-TC; 87040-TC; 87081-TC; 87086-TC; 93307-TC; 94640-TC; 94664-TC; 94760-TC; 99082-TC; A4623; A4624; A7526; C1751; G0378; J1720; J2543; J3370; J3475; J3480; J7030; J7040; J7050; J7060; J7070